=== PATIENT | female | born 1990 | race Caucasian/White ===

== ENCOUNTER 2024-09-14 12:37 | Emergency (ER) | payer MEDICAID, OTHER ==
[~2024-09-14] VITALS: Ht 172.7 cm; Wt 101.7 kg
[2024-09-14 13:16] LABS: Urine Bacteria None Seen /hpf (None Seen)
[2024-09-14 13:26] LABS: Urine Blood 2+ /uL (Negative); Urine Clarity Turbid (Clear); Urine Color Yellow (Yellow); Urine Mucus FEW (None Seen); Urine Protein, UAD TRACE (Negative); Urine Specific Gravity 1.023 (1.001-1.035); Urine Urobilinogen Normal (Negative); Urine WBC 6 /hpf (0 - 5)
--- NOTE | 2024-09-14 13:34 | ED.PDOC ---
History of Present Illness HPI Comments This is a 34-year-old female who comes in with chief complaint of vaginal bleeding. The patient states that she is approximately 15 weeks and started with some bleeding this morning. The patient was also complaining of some low back pain as well as right-sided pelvic pain. The patient denies other complaints at this time. There has been no vomiting or diarrhea. Chief Complaint: Vaginal Bleed Time Seen by MD: 12:45 Primary Care Provider: NONE Reviewed Notes: Nurses Notes, Medications, Allergies (No allergies to medications) Allergies: Coded Allergies: NO KNOWN ALLERGIES (Unverified , 09/14/24) Home Meds Active Scripts Nitrofurantoin Monohydrate Mac (Macrobid) 100 Mg Cap, 100 MG PO BID for 5 Days, #10 CAP Prov:DARSHAN MOLINA MD 09/14/24 Information Source: Patient Mode of Arrival: Ambulatory Severity: Mild Timing: Hours Duration: Since onset Prehospital treatment: None Associated signs and symptoms Vaginal bleeding as well as lower abdominal pain Past Medical History PAST MEDICAL HISTORY: Anxiety Surgical History: Denies all surgeries 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 Family History Family History: Family hx of DM Social History Smoker: Non-Smoker Alcohol: Denies ETOH Use Drugs: Denies Drug Use Lives In: Home Constitutional: denies: chills, diaphoresis, fatigue, fever, malaise, sweats, weakness, others EENTM: denies: blurred vision, double vision, ear bleeding, ear discharge, ear drainage, ear pain, ear ringing, eye pain, eye redness, hearing loss, mouth pain, mouth swelling, nasal discharge, nose bleeding, nose congestion, nose pain, photophobia, tearing, throat pain, throat swelling, voice changes, others Respiratory: denies: cough, hemoptysis, orthopnea, SOB at rest, shortness of breath, SOB with excertion, stridor, wheezing, others Cardiovascular: denies: chest pain, dizzy spells, diaphoresis, Dyspnea on exertion, edema, irregular heart beat, left arm pain, lightheadedness, palpitations, PND, syncope, others Gastrointestinal: denies: abdomen distended, abdominal pain, blood streaked bowels, constipated, diarrhea, dysphagia, difficulty swallowing, hematemesis, melena, nausea, poor appetite, poor fluid intake, rectal bleeding, rectal pain, vomiting, others Genitourinary: reports: abnormal vagina bleeding, ; denies: burning, dyspareunia, dysuria, flank pain, frequency, hematuria, incontinence, pain, vagina discharge, urgency, others Neurological: denies: dizziness, fainting, headache, left sided numbness, left sided weakness, numbness, paresthesia, pre-existing deficit, right sided nu mbness, right sided weakness, seizure, speech problems, tingling, tremors, weakness, others Musculoskeletal: denies: back pain, gout, joint pain, joint swelling, muscle pain, muscle stiffness, neck pain, others Integumetry: denies: bruises, change in color, change in hair/nails, dryness, laceration, lesions, lumps, rash, wounds, others Allergic/Immunocompromised: denies: Difficulty Healing, Frequent Infections, Hives, Itching, others Hematologic/Lymphatic: denies: anemia, blood clots, easy bleeding, easy bruising, swollen glands, others Endocrine: denies: excessive hunger, excessive sweating, excessive thirst, excessive urination, flushing, intolerance to cold, intolerance to heat, unexplained weight gain, unexplained weight loss, others Psychiatric: denies: anxiety, bipolar disorder, depression, hopeless, panic disorder, schizophrenia, sleepless, suicidal, others Physical Exam General Appearance: No Apparent Distress HEENT: Normal ENT Inspection, Pharynx Normal, TMs Normal Neck: Full Range of Motion, Non-Tender, Normal, Normal Inspection Respiratory: Chest Non-Tender, Lungs Clear, No Accessory Muscle Use, No Respiratory Distress, Normal Breath Sounds Cardiovascular: No Edema, No JVD, No Murmur, No Gallop, Normal Peripheral Pulses, Regular Rate/Rhythm Breast Exam: Deferred Gastrointestinal: No Organomegaly, Non Tender, No Pulsatile Mass, Normal Bowel Sounds, Soft Genitalia: Deferred Pelvic: Deferred Rectal: Deferred Extremities: No calf tenderness, Normal capillary refill, Normal inspection, Normal range of motion, Non-tender, No pedal edema Musculoskeletal : Apperance: Normal Neurologic: Alert, distribution system operator II-XII nml as Tested, No Motor Deficits, Normal Affect, Normal Mood, No Sensory Deficits Cerebellar Function: Normal Reflexes: Normal Skin: Dry, Normal Color, Warm Lymphatic: No Adenopathy Was a procedure done? Was a procedure done?: No Differential Dx Considerations may include: Threatened , ectopic , pain in X-Ray, Labs, Meds, VS Vital Signs Date Time Temp Pulse Resp B/P (MAP) Pulse Ox O2 Delivery O2 Flow Rate FiO2 09/14/24 12:50 98.1 89 20 118/76 (90) 100 Lab Test 09/14/24 13:55 09/14/24 13:15 Range/Units Beta HCG, Quantitative 42053.1 H 1.5-4.2 mIU/mL Urine Color Yellow Yellow Urine Clarity Turbid H Clear Urine pH 6.0 5.0-9.0 Urine Specific [place] 1.023 1.001-1.035 Urine Protein Trace H Negative Urine Ketones Negative Negative Urine Blood 2+ H Negative /uL Urine Nitrite Negative Negative Urine Bilirubin Negative Negative Urine Urobilinogen Normal Negative mg/dL Urine Leukocyte Esterase 2+ Negative /uL Urine RBC 2 0 - 4 /hpf Urine WBC 6 0 - 5 /hpf Urine Squamous Epithelial Cells Mod <5 /hpf Urine Bacteria None seen None Seen /hpf Urine Mucus Few None Seen Urine Glucose Normal Normal mg/dL The urine test [place] [address] The ultrasound of the pelvis shows: IMPRESSION: IUP single live fetus at 15 weeks 3 days AUA corresponding to an DESIREE of 03/05/2025 The patient was being started on Macrobid for the UTI The patient was to follow up with her OBGYN. The patient will return to the emergency department's condition worsens. Images Reviewed?: Images reviewed and evaluated by me Time of 1ST Reevaluation: 13:34 Reevaluation 1ST: Unchanged Patient Education/Counseling: Diagnosis, Treatment, Prognosis, Need For Follow Up Family Education/Counseling: Diagnosis, Treatment, Prognosis, Need For Follow Up Departure 1 Departure Time of Disposition: 15:14 Impression: Primary Impression: UTI in Qualified Codes: O23.40 - Unspecified infection of urinary tract in , unspecified trimester Additional Impression: Threatened Disposition: 01 HOME / SELF CARE / HOMELESS Condition: Fair e-Prescriptions Nitrofurantoin Monohydrate Mac (Macrobid) 100 Mg Cap 100 MG PO BID for 5 Days, #10 CAP Prov: DARSHAN MOLINA MD 09/14/24 Discharged With: Self Critical Care Note Critical Care Time?: No Stability Stability form required: No Heart Score Heart Score: Heart Score Response (Comments) Value History N/A 0 EKG N/A 0 Age N/A 0 Risk Factors N/A 0 Troponin N/A 0 Total 0 DARSHAN MOLINA MD Sep 14, 2024 13:34
--- NOTE | 2024-09-14 14:16 | DVH ---
LIMITED OB ULTRASOUND > 14 WKS: HISTORY: vag bleeding TECHNIQUE: Multiple real-time grayscale images of the gravid uterus with duplex Doppler color flow an d M-mode spectral analysis. TRANSDUCER: Vaginal bleeding FINDINGS: IUP single live fetus at 15 weeks 3 days based on composite averages of the BPD, head circumference, abdominal circumference and femur length Estimated weight 118 grams heart rate 141 beats per minute MVP 3.2 cm Cervix appears closed and measures 3.2 cm. Breech Presentation Anterior Placenta without previa or abruption. IMPRESSION: IUP single live fetus at 15 weeks 3 days AUA corresponding to an DESIREE of 03/05/2025
[2024-09-14] MEDS ORDERED: NITR-87 PO (15:13)
[2024-09-14 15:26] VITALS: BP 115/78; PULSE 78; RESP 15; TEMP 98.1; O2SAT 98
== END 2024-09-14 15:30 | disposition home or self-care (01) ==
LOC: ER 12:37
DX: O23.42 Unspecified infection of urinary tract in pregnancy, second trimester (principal); O20.0 Threatened abortion; O26.892 Other specified pregnancy related conditions, second trimester; R10.2 Pelvic and perineal pain; F41.9 Anxiety disorder, unspecified; Z3A.15 15 weeks gestation of pregnancy; Z87.440 Personal history of urinary (tract) infections
CPT/HCPCS: 36415; 76805; 81001; 84702

== ENCOUNTER 2024-12-27 11:10 | Inpatient (IN) | payer MEDICAID ==
[~2024-12-27] VITALS: Ht 172.7 cm; Wt 108.1 kg
[~2024-12-27 11:10] MED LIST: NITR-87 PO
--- NOTE | 2024-12-27 11:27 | ED.PDOC ---
Eye-HPI HPI Comments 34-year-old female presents with a chief complaint of abscess to mouth. Patient reports that she is currently 7 months , and is currently on Amoxicillin for the abscess. Patient reports that she has taken 2 days worth of antibiotics so far. Patient has swelling to the bottom left portion of her mouth. Patient is able to breathe on her own and speak in full, complete sentences. Time Seen by MD: 11:20 Primary Care Provider: NONE Reviewed Notes: Medications, Allergies Allergies: Coded Allergies: NO KNOWN ALLERGIES (Unverified , 09/14/24) Home Meds Active Scripts Nitrofurantoin Monohydrate Mac (Macrobid) 100 Mg Cap, 100 MG PO BID for 5 Days, #10 CAP Prov:DARSHAN MOLINA MD 09/14/24 Information Source: Patient Mode of Arrival: Ambulatory Timing: Days Duration: Since onset Prehospital treatment: Treatment (Amoxicillin x 2 days) Quality: Pain Mouth Location: Left, Lower, Gums Onset: Spontaneous Past Medical History PAST MEDICAL HISTORY: Anxiety, Depression Past Medical History (Other): Hepatitis B Surgical History: Denies all surgeries 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 Family History Family History: Family hx of DM Social History Smoker: Non-Smoker Alcohol: Denies ETOH Use Drugs: Denies Drug Use Lives In: Home Constitutional: denies: chills, diaphoresis, fatigue, fever, malaise, sweats, weakness, others EENTM: reports: mouth pain, mouth swelling; denies: blurred vision, double vision, ear bleeding, ear discharge, ear drainage, ear pain, ear ringing, eye pain, eye redness, hearing loss, nasal discharge, nose bleeding, nose congestion, nose pain, photophobia, tearing, throat pain, throat swelling, voice changes, others Respiratory: denies: cough, hemoptysis, orthopnea, SOB at rest, shortness of breath, SOB with excertion, stridor, wheezing, others Cardiovascular: denies: chest pain, dizzy spells, diaphoresis, Dyspnea on exertion, edema, irregular heart beat, left arm pain, lightheadedness, palpitations, PND, syncope, others Gastrointestinal: denies: abdomen distended, abdominal pain, blood streaked bowels, constipated, diarrhea, dysphagia, difficulty swallowing, hematemesis, melena, nausea, poor appetite, poor fluid intake, rectal bleeding, rectal pain, vomiting, others Genitourinary: denies: abnormal vagina bleeding, burning, dyspareunia, dysuria, flank pain, frequency, hematuria, incontinence, pain, , vagina discharge, urgency, others Neurological: denies: dizziness, fainting, headache, left sided numbness, left sided weakness, numbness, paresthesia, pre-existing deficit, right sided numbn ess, right sided weakness, seizure, speech problems, tingling, tremors, weakness, others Musculoskeletal: denies: back pain, gout, joint pain, joint swelling, muscle pain, muscle stiffness, neck pain, others Integumetry: denies: bruises, change in color, change in hair/nails, dryness, laceration, lesions, lumps, rash, wounds, others Allergic/Immunocompromised: denies: Difficulty Healing, Frequent Infections, Hives, Itching, others Hematologic/Lymphatic: denies: anemia, blood clots, easy bleeding, easy bruising, swollen glands, others Endocrine: denies: excessive hunger, excessive sweating, excessive thirst, excessive urination, flushing, intolerance to cold, intolerance to heat, unexplained weight gain, unexplained weight loss, others Psychiatric: denies: anxiety, bipolar disorder, depression, hopeless, panic disorder, schizophrenia, sleepless, suicidal, others All Other Systems: Reviewed and Negative Physical Exam General Appearance: No Apparent Distress, Normal HEENT: Pharynx Normal, TMs Normal, Other (ABSCESS TO BOTTOM LEFT MOUTH) Neck: Full Range of Motion, Non-Tender, Normal, Normal Inspection Respiratory: Chest Non-Tender, Lungs Clear, No Accessory Muscle Use, No Respiratory Distress, Normal Breath Sounds Cardiovascular: No Edema, No JVD, No Murmur, No Gallop, Normal Peripheral Pulses, Regular Rate/Rhythm Breast Exam: Deferred Gastrointestinal: No Organomegaly, Non Tender, No Pulsatile Mass, Normal Bowel Sounds, Soft Genitalia: Deferred Pelvic: Deferred Rectal: Deferred Extremities: No calf tenderness, Normal capillary refill, Normal inspection, Normal range of motion, Non-tender, No pedal edema Musculoskeletal : Apperance: Normal Neurologic: Alert, bottom precipitator operator II-XII nml as Tested, No Motor Deficits, Normal Affect, Normal Mood, No Sensory Deficits Cerebellar Function: Normal Reflexes: Normal Skin: Dry, Rash (left lower jaw mildly swollen and mildly erythematous and tender. no trismus. no airway swelling ), Warm Lymphatic: No Adenopathy Was a procedure done? Was a procedure done?: Yes Sedation Sedation?: No Informed consent obtained: Yes Incision and Drainage Incision and Drainage: Abscess Anesthetic: Lidocaine Incision and Wound: Pus Informed consent obtained: Yes Risks/benefits/alt described: Yes Notes about 3cc of pus drained. area flattened EENT DIFF Eye: Other Ear: Other Nose: Other Mouth: Herpangina, Herpes Simplex, Other (dental caries, dental abscess, facial cellulitis, lugwig's angina) Sore Throat: Other X-Ray, Labs, Meds, VS Vital Signs Date Time Temp Pulse Resp B/P (MAP) Pulse Ox O2 Delivery O2 Flow Rate FiO2 12/27/24 12:02 18 Room Air* 0 21 12/27/24 12:00 107 18 95 Room Air 12/27/24 12:00 98.3 107 18 132/93 (106) 95 98.3 12/27/24 11:20 98.1 105 16 124/85 (98) 95 98.1 Lab Test 12/27/24 11:30 Range/Units White Blood Count 11.7 H 4.4-10.8 10^3/uL Red Blood Count 4.24 4.0-5.20 10^6/uL Hemoglobin 12.9 12.2-16.2 g/dL Hematocrit 38.4 36.0-46.0 % Mean Corpuscular Volume 90.7 80.0-100.0 fL Mean Corpuscular Hemoglobin 30.4 28.0-32.0 pg Mean Corpuscular Hemoglobin Concent 33.5 32.0-36.0 g/dL Red Cell Distribution Width 13.5 11.8-14.3 % Platelet Count 219 140-450 10^3/uL Mean Platelet Volume 9.4 6.9-10.8 fL Neutrophils (%) (Auto) 80.5 H 37.0-80.0 % Lymphocytes (%) (Auto) 14.0 10.0-50.0 % Monocytes (%) (Auto) 4.2 0.0-12.0 % Eosinophils (%) (Auto) 0.9 0.0-7.0 % Basophils (%) (Auto) 0.4 0.0-2.0 % Neutrophils # (Auto) 9.4 H 1.6-8.6 10 ^3/uL Lymphocytes # (Auto) 1.6 0.4-5.4 10 ^3/uL Monocytes # (Auto) 0.5 0-1.3 10 ^3/uL Eosinophils # (Auto) 0.1 0-0.8 10 ^3/uL Basophils # (Auto) 0.1 0-0.2 10 ^3/uL Nucleated Red Blood Cells 0.1 % Sodium Level 137 136-145 mmol/L Potassium Level 3.6 3.5-5.1 mmol/L Chloride Level 106 98-107 mmol/L Carbon Dioxide Level 22 20-31 mmol/L Anion Gap 9 5-15 Blood Urea Nitrogen Pending Creatinine 0.59 0.550-1.02 mg/dL Glomerular Filtration Rate Calc 123 >90 mL/min BUN/Creatinine Ratio Pending Serum Glucose 130 H 74-106 mg/dL Calcium Level 9.1 8.7-10.4 mg/dL Current Medications Medications (Trade) Dose Ordered Sig/Adrianna Route Start Time Stop Time Status Last Admin Ceftriaxone Sodium 50 ml @ 100 mls/hr ONCE ONCE IV 12/27/24 11:30 12/27/24 11:59 DC 12/27/24 11:58 Time of 1ST Reevaluation: 11:50 Reevaluation 1ST: Unchanged Time of 2ND Reevaluation: 11:52 Reevaluation 2ND: Improved Patient Education/Counseling: Diagnosis, Treatment, Prognosis, Need For Follow Up Family Education/Counseling: No Family Present Additional Information Previous visit documents reviewed: September 2024 for UTI The following tests were ordered, and results were reviewed by me: CBC, BMP, ROCEPHIN IV I discussed treatment and results with medical personnel and: Patient pt is , has failed outpatient antibiotic for a dental abscess. although the gingival abscess is drained here. she does have swelling, redness of the mandible, suggesting cellulitis. ct is not done, since she is , but she will be admitted for iv antibiotic and monitoring for improvement Departure 1 Departure Time of Disposition: 12:15 Impression: Primary Impression: Dental abscess Additional Impressions: Facial cellulitis Qualified Codes: Z3A.36 - 36 weeks gestation of Disposition: ADMITTED INPATIENT Admit to: Med Surg Condition: Stable Discharged With: Self Critical Care Note Critical Care Time?: No Stability Stability form required: No Heart Score Heart Score: Heart Score Response (Comments) Value History N/A 0 EKG N/A 0 Age N/A 0 Risk Factors N/A 0 Troponin N/A 0 Total 0 I personally scribed for WM JUNIOR MD [facility] on 12/27/24 at 11:26. Electronically submitted by Demond Cooley ([email or web address]). I personally scribed for WM JUNIOR MD ([email or web address]) on 12/27/24 at 11:27. Electronically submitted by Demond Cooley ([email or web address]). WM JUNIOR MD Dec 27, 2024 11:26
[2024-12-27 11:44] LABS: Basophils # (auto) 0.1 10 ^3/uL (0-0.2); Basophils % (auto) 0.4 % (0.0-2.0); Eosinophils # (auto) 0.1 10 ^3/uL (0-0.8); Eosinophils % (auto) 0.9 % (0.0-7.0); Hematocrit 38.4 % (36.0-46.0); Hemoglobin 12.9 g/dL (12.2-16.2); Lymphocytes # (auto) 1.6 10 ^3/uL (0.4-5.4); Mean Corpuscular Hemoglobin 30.4 pg (28.0-32.0); Mean Corpuscular Hgb Conc. 33.5 g/dL (32.0-36.0); Mean Corpuscular Volume 90.7 fL (80.0-100.0); Monocytes # (auto) 0.5 10 ^3/uL (0-1.3); Monocytes % (auto) 4.2 % (0.0-12.0); Neutrophils # (auto) 9.4 10 ^3/uL (1.6-8.6); Neutrophils % (auto) 80.5 % (37.0-80.0); Nucleated Red Blood Cells % 0.1 %; Platelet Count (auto) 219 10^3/uL (140-450); Red Blood Cells 4.24 10^6/uL (4.0-5.20); Red Cell Distribution Width 13.5 % (11.8-14.3); White Blood Cell 11.7 10^3/uL (4.4-10.8)
[2024-12-27] MEDS: LIDOCAINE 1% HCL (LOCAL ANESTH.) INJ 20ML MDV IJ ONE (11:44)
[2024-12-27 11:58] LABS: Chloride 106 mmol/L (98-107); Potassium 3.6 mmol/L (3.5-5.1); Sodium 137 mmol/L (136-145)
[2024-12-27] MEDS: cefTRIAXone 1GM/50ML D5W 50 ML IV ONE (11:58)
[2024-12-27 11:59] LABS: Anion Gap 9 (5-15); Calcium 9.1 mg/dL (8.7-10.4); Carbon Dioxide 22 mmol/L (20-31)
[2024-12-27 12:02] VITALS: RESP 18
[2024-12-27 12:04] LABS: Glucose 130 mg/dL (74-106)
[2024-12-27 12:24] LABS: BUN/Creatinine Ratio 8.5 (10.0-20.0); Blood Urea Nitrogen < 5 mg/dL (9-23)
[2024-12-27] MEDS: ACETAMINOPHEN 325 MG TAB PO ONE (13:31)
[2024-12-27 15:29] VITALS: PULSE 84; RESP 20; O2SAT 96
--- NOTE | 2024-12-27 15:50 | DVHHP2 ---
History of Present Illness Reason for Visit: Dental pain History of Present Illness This 34-year-old female is currently seven months , presents in the ED with a chief complaint of dental abscess. Symptoms is associated with patient's swelling, erythema, and warmth to touch. The patient reports that she was seen by her dentist yesterday and was given PO amoxicillin. The patient states that she has been taking oral antibiotics with no relief. Denies fever, chills, shortness of breath, chest pain, or other acute symptoms. Past Medical History Denies Past Surgical History Denies Family History Reviewed, non-contributory to the management of this case. Past Social History The patient lives at home, denies smoking, alcohol or illicit drugs abuse. Review of Systems Constitutional: Yes: Malaise, Other (dental pain); No: Fever, Chills, Sweats, Weakness Eyes: No: Pain, Vision change, Conjunctivae inflammation, Eyelid inflammation, Other, Redness ENT: No: Ear pain, Ear discharge, Nose pain, Nose discharge, Nose congestion, Mouth pain, Mouth swelling, Throat pain, Throat swelling, Other Respiratory: No: Cough, Dry, Shortness of breath, SOB with excertion, Wheezing, Hemoptysis, Pleuritic Pain, Sputum, Wheezing, Other Gastrointestinal: No: Nausea, Vomiting, Abdominal Pain, Diarrhea, Constipation, Melena, Hematochezia, Other Musculoskeletal: No: other, neck pain, shoulder pain, arm pain, back pain, hand pain, leg pain, foot pain Skin: Other (Facial swelling, gums swelling); No: Rash, Lesions, Jaundice, Bruising Neurological: No: Weakness, Numbness, Incoordination, Change in speech, Confusion, Seizures, Other Allergies: Coded Allergies: NO KNOWN ALLERGIES (Unverified , 09/14/24) Exam Vital Signs Vital Signs Date Time Temp Pulse Resp B/P (MAP) Pulse Ox O2 Delivery O2 Flow Rate FiO2 12/27/24 15:29 84 20 96 Room Air* 0 21 12/27/24 15:25 96.7 107/71 (83) 96.7 General Appearance: Alert, Oriented X3, Cooperative, mild distress HEENT: Atraumatic, PERRLA, EOMI, Mucous membr. moist/pink, Other (Gums swelling, facial swelling, erythema) Respiratory: Clear to auscultation, Normal air movement Cardiovascular: Regular rate, Normal S1, Normal S2 Abdominal: Normal bowel sounds, Soft, No tenderness Extremities: No clubbing, No cyanosis, No edema, Normal pulses Neuro: Normal gait, Normal tone Psych/Mental Status: Mental status NL Labs/Xrays Labs Test 12/27/24 11:30 Range/Units White Blood Count 11.7 H 4.4-10.8 10^3/uL Red Blood Count 4.24 4.0-5.20 10^6/uL Hemoglobin 12.9 12.2-16.2 g/dL Hematocrit 38.4 36.0-46.0 % Mean Corpuscular Volume 90.7 80.0-100.0 fL Mean Corpuscular Hemoglobin 30.4 28.0-32.0 pg Mean Corpuscular Hemoglobin Concent 33.5 32.0-36.0 g/dL Red Cell Distribution Width 13.5 11.8-14.3 % Platelet Count 219 140-450 10^3/uL Mean Platelet Volume 9.4 6.9-10.8 fL Neutrophils (%) (Auto) 80.5 H 37.0-80.0 % Lymphocytes (%) (Auto) 14.0 10.0-50.0 % Monocytes (%) (Auto) 4.2 0.0-12.0 % Eosinophils (%) (Auto) 0.9 0.0-7.0 % Basophils (%) (Auto) 0.4 0.0-2.0 % Neutrophils # (Auto) 9.4 H 1.6-8.6 10 ^3/uL Lymphocytes # (Auto) 1.6 0.4-5.4 10 ^3/uL Monocytes # (Auto) 0.5 0-1.3 10 ^3/uL Eosinophils # (Auto) 0.1 0-0.8 10 ^3/uL Basophils # (Auto) 0.1 0-0.2 10 ^3/uL Nucleated Red Blood Cells 0.1 % Sodium Level 137 136-145 mmol/L Potassium Level 3.6 3.5-5.1 mmol/L Chloride Level 106 98-107 mmol/L Carbon Dioxide Level 22 20-31 mmol/L Anion Gap 9 5-15 Blood Urea Nitrogen < 5 L 9-23 mg/dL Creatinine 0.59 0.550-1.02 mg/dL Glomerular Filtration Rate Calc 123 >90 mL/min BUN/Creatinine Ratio 8.5 L 10.0-20.0 Serum Glucose 130 H 74-106 mg/dL Calcium Level 9.1 8.7-10.4 mg/dL Assessment/Plan Assessment/Plan # rule out sepsis # dental abscess # , approx 30 wk. Admit to medical unit Empiric antibiotic with amoxicillin p.o. and Ancef Consult OB Dr Nunez IV fluid Medical plan discussed with patient Plan discussed with: Patient Date of Service: Dec 27, 2024 Billing Provider: PRESLEY MENENDEZ Common Visit Codes: [id number] INP/OBS CARE (HIGH) PRESLEY MENENDEZP Dec 27, 2024 15:50
[2024-12-27] MEDS: SODIUM CHLORIDE 0.9% 1,000 ML IV SCH (16:25)
[2024-12-27] MEDS: AMOXICILLIN TRIHYDRATE 250 MG CAP PO SCH (16:30)
[2024-12-27 17:17] VITALS: BP 100/59; PULSE 77; RESP 18; TEMP 98; O2SAT 96
[2024-12-27] MEDS: ceFAZolin 1GM/50ML 50 ML IV SCH (18:52)
[2024-12-27 20:00] VITALS: PULSE 87; RESP 15
[2024-12-27 21:00] VITALS: BP 112/71; PULSE 87; RESP 15; TEMP 97.9; O2SAT 97
[2024-12-28] VITALS (9 sets, daily range): BP systolic 84–108; BP diastolic 45–66; PULSE 67–87; RESP 15–20; TEMP 97.3–97.8; O2SAT 95–97
[2024-12-28 06:27] LABS: Basophils # (auto) 0 10 ^3/uL (0-0.2); Basophils % (auto) 0.4 % (0.0-2.0); Eosinophils # (auto) 0.1 10 ^3/uL (0-0.8); Eosinophils % (auto) 1.5 % (0.0-7.0); Hematocrit 32.8 % (36.0-46.0); Hemoglobin 11.6 g/dL (12.2-16.2); Lymphocytes # (auto) 2.1 10 ^3/uL (0.4-5.4); Lymphocytes % (auto) 24.5 % (10.0-50.0); Mean Corpuscular Hgb Conc. 35.2 g/dL (32.0-36.0); Mean Corpuscular Volume 90.9 fL (80.0-100.0); Monocytes # (auto) 0.6 10 ^3/uL (0-1.3); Monocytes % (auto) 6.6 % (0.0-12.0); Neutrophils # (auto) 5.6 10 ^3/uL (1.6-8.6); Nucleated Red Blood Cells % 0.1 %; Platelet Count (auto) 177 10^3/uL (140-450); Red Blood Cells 3.61 10^6/uL (4.0-5.20); Red Cell Distribution Width 13.3 % (11.8-14.3); White Blood Cell 8.4 10^3/uL (4.4-10.8)
[2024-12-28 06:40] LABS: Alanine Aminotransferase 22 U/L (7-40); Anion Gap 9 (5-15); Calcium 8.8 mg/dL (8.7-10.4); Carbon Dioxide 22 mmol/L (20-31); Potassium 3.6 mmol/L (3.5-5.1); Sodium 139 mmol/L (136-145)
[2024-12-28 06:41] LABS: Glucose 85 mg/dL (74-106)
[2024-12-28 06:42] LABS: Alkaline Phosphatase 179 U/L (46-116); BUN/Creatinine Ratio 9.1 (10.0-20.0); Blood Urea Nitrogen < 5 mg/dL (9-23); Chloride 108 mmol/L (98-107); Total Protein 5.8 g/dL (5.7-8.2)
[2024-12-28 06:43] LABS: Albumin 3.4 g/dL (3.2-4.8); Aspartate Aminotransferase 26 U/L (13-40)
[2024-12-28 06:44] LABS: Bilirubin, Total 0.4 mg/dL (0.2-1.0)
[2024-12-28 08:39] LABS: Albumin 3.3 g/dL (3.2-4.8); Bilirubin, Direct 0.1 mg/dL (<0.3); Bilirubin, Total 0.4 mg/dL (0.2-1.0); Magnesium 1.8 mg/dL (1.6-2.6); Total Protein 5.8 g/dL (5.7-8.2)
[2024-12-28 08:49] LABS: Thyroid Stimulating Hormone 1.82 uIU/mL (0.55-4.78)
--- NOTE | 2024-12-28 09:31 | DVHINCON2 ---
Date of service: Dec 28, 2024 Reason for Consultation 30 wk , acute illness (Tooth abscess) History of Present Illness HPI 34y G2Po IUP 30.4 wk by Stated EDC of 03/04/25 care with Tra Johnson. has been uncomplicated Denies any pain, bleeding, contractions. Reports normal movements Patient admitted with acute left side oral pain diagnosed with tooth abscess. Denies fever/chills or purulent discharge. She was prescribed oral antibiotics by dentist but symptoms have not subsided. Home Meds Active Scripts Nitrofurantoin Monohydrate Mac (Macrobid) 100 Mg Cap, 100 MG PO BID for 5 Days, #10 CAP Prov:DARSHAN MOLINA MD 09/14/24 Past Medical History Cardiac: No pertinent Hx Pulmonary: No pertinent Hx Central Nervous System: No pertinent Hx GI: No pertinent Hx Hemotology/Oncology: No pertinent Hx Hepatobiliary: No pertinent Hx Psychiatric: No pertinent Hx Musculoskeletal: No pertinent Hx Rheumotologic: No pertinent Hx Infectious Disease: No peritnent Hx ENT: No pertinent Hx Renal/: No pertinent Hx Endocrine: No pertinent Hx Dermatology: No pertinent Hx Past Surgical History: No pertinent Hx Family History: No pertinent Hx Patient Family History: Diabetes mellitus MATERNAL GRANDMOTHER FH: dementia MATERNAL GRANDMOTHER FH: schizophrenia G8 MOTHER Smoker: No Hx (Negative) Alocohol: None Drugs: None Lives with: Alone Domestic Violence: Neg Review of Systems Constitutional: No symptom reported Ears, Nose, & Throat: Mouth pain Eyes: No symptom reported Pulmonary/Respiratory: No symptom reported Cardiovascular: No symptom reported Gastrointestinal: No symptom reported Genitourinary: No symptom reported Musculoskeletal: No symptom reported Skin: No symptom reported Psychiatric: No symptom reported Endocrine: No symptom reported Hemotologic/Lymphatic: No symptom reported H&P Exam Vital Signs Vital Signs Date Time Temp Pulse Resp B/P (MAP) Pulse Ox O2 Delivery O2 Flow Rate FiO2 12/28/24 05:00 97.8 87 15 91/64 (73) 96 97.8 12/27/24 20:00 Room Air* 0 21 General Appeara: Well developed, Well nourished, Normal Appearance Head Exam: Normal inspection Neck Exam: Normal inspection Eye Exam: bilateral eye PERRL Mouth: Normal Inspection (gingival swelling in lower left ) Cardiovascular/Chest: Normal inspection Back Exam: Normal inspection Pelvic Exam: Not done 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 Exam: Normal hearing, Normal speech, PERRL Skin Exam: Normal inspection Labs/Xrays Labs Test 12/28/24 05:36 12/28/24 05:26 Range/Units Thyroid Stimulating Hormone (TSH) 1.82 0.55-4.78 uIU/mL Beta HCG, Quantitative 73595.7 H 1.5-4.2 mIU/mL White Blood Count 8.4 # 4.4-10.8 10^3/uL Red Blood Count 3.61 L 4.0-5.20 10^6/uL Hemoglobin 11.6 L 12.2-16.2 g/dL Hematocrit 32.8 #L 36.0-46.0 % Mean Corpuscular Volume 90.9 80.0-100.0 fL Mean Corpuscular Hemoglobin 32.0 28.0-32.0 pg Mean Corpuscular Hemoglobin Concent 35.2 32.0-36.0 g/dL Red Cell Distribution Width 13.3 11.8-14.3 % Platelet Count 177 140-450 10^3/uL Mean Platelet Volume 9.5 6.9-10.8 fL Neutrophils (%) (Auto) 67.0 37.0-80.0 % Lymphocytes (%) (Auto) 24.5 10.0-50.0 % Monocytes (%) (Auto) 6.6 0.0-12.0 % Eosinophils (%) (Auto) 1.5 0.0-7.0 % Basophils (%) (Auto) 0.4 0.0-2.0 % Neutrophils # (Auto) 5.6 1.6-8.6 10 ^3/uL Lymphocytes # (Auto) 2.1 0.4-5.4 10 ^3/uL Monocytes # (Auto) 0.6 0-1.3 10 ^3/uL Eosinophils # (Auto) 0.1 0-0.8 10 ^3/uL Basophils # (Auto) 0 0-0.2 10 ^3/uL Nucleated Red Blood Cells 0.1 % Sodium Level 139 136-145 mmol/L Potassium Level 3.6 3.5-5.1 mmol/L Chloride Level 108 H 98-107 mmol/L Carbon Dioxide Level 22 20-31 mmol/L Anion Gap 9 5-15 Blood Urea Nitrogen < 5 L 9-23 mg/dL Creatinine 0.55 0.550-1.02 mg/dL Glomerular Filtration Rate Calc 125 >90 mL/min BUN/Creatinine Ratio 9.1 L 10.0-20.0 Serum Glucose 85 74-106 mg/dL Hemoglobin A1c 4.8 <5.7 % A1C Calcium Level 8.8 8.7-10.4 mg/dL Magnesium Level 1.8 1.6-2.6 mg/dL Total Bilirubin 0.4 0.2-1.0 mg/dL Direct Bilirubin 0.1 <0.3 mg/dL Aspartate Amino Transferase (AST) 26 13-40 U/L Alanine Aminotransferase (ALT) 23 7-40 U/L Alkaline Phosphatase 188 H 46-116 U/L Total Protein 5.8 5.7-8.2 g/dL Albumin 3.3 3.2-4.8 g/dL Assessment/Plan Admitting Diagnosis: 1. IUP 30+ week, confirmed by OB Ulttrasound on admission _ NO acute OB complications at this time _ Will get NST today. OB will sign off if its normal. Patilent to F/U w/ her own OB MD upon discharge Tooth abscess, oral infection _ agree w/ plan for Antibiotics and Tylenol /analgesics for pain Plan as above Plan discussed with: Patient Date of Service: Dec 28, 2024 Billing Provider: EVON ADAIR DO Common Visit Codes: CONSULT ONLY Consultation Codes: [id number] CONSULT <45MIN EVON ADAIR DO Dec 28, 2024 09:31
--- NOTE | 2024-12-28 10:18 | DVH ---
LIMITED OB ULTRASOUND > 14 WKS: HISTORY: Acute illness maternal, complete OB ultrasound TECHNIQUE: Multiple real-time grayscale images of the gravid uterus with duplex Doppler color flow an d M-mode spectral analysis. TRANSDUCER: Transabdominal COMPARISON: US OB ULTRASOUND COMP GTR 14 WKS on DOS: 09/14/24 FINDINGS: IUP single live fetus at 30 weeks and 4 days based on composite averages of the BPD, head circumferen ce, abdominal circumference and femur length Estimated weight 1596 grams heart rate 136 beats per minute DIANA is subjectively within normal limits, deepest pocket measures 4.7 cm Cervix is closed Cephalic Presentation Anterior Placenta without previa or abruption. IMPRESSION: IUP single live fetus at 30 weeks and 4 days AUA corresponding to an DESIREE of 03/04/2025
[2024-12-28] MEDS: SODIUM CHLORIDE 0.9% 500 ML IV ONE (12:58)
[2024-12-28] MEDS: ERGOCALCIFEROL 50,000 UNIT(1.25MG) CAP PO SCH (12:58)
[2024-12-28] MEDS: ESCITALOPRAM 20 MG PO SCH (16:00)
--- NOTE | 2024-12-28 16:02 | DVHPNRES ---
Progress Note Date Seen: Dec 28, 2024 Resident Creating Document: PHAN MUKHERJEE RESIDENT Medical Necessity Reason Pt with a Central, PICC or Fol: No Subjective Review of Systems Ms. Alvarez is a 34-year-old female with no relevant past medical history who presented to the ER with a chief complaint of worsening pain in the left jaw, along with inability to swallow or open her mouth. She reports that the symptoms started last week and she uses in the urgent care where she was prescribed amoxicillin clavulanate p.o. for dental abscess. She reported her symptoms was sent over the past few days. She could not open her mouth or swallow any solid food. Denies fever or chills. On arrival patient's vital were stable. WBC was 11.7. In the ER, patient's dental abscess was drained. She was started on IV cefazolin along with p.o. amoxicillin. Pelvic ultrasound was completed which was unremarkable. OBGYN was consulted which recommended NST. Home medication: Escitalopram 20 mg daily, vitamin Social history: Denies smoking/drug use/drinking Patient seen and examined at the bedside. OBGYN recommended NST. Patient feels better. WBC downtrending. Objective vital signs Vital Sign Date Time Temp Pulse Resp B/P (MAP) Pulse Ox O2 Delivery O2 Flow Rate FiO2 12/28/24 13:00 97.3 78 17 84/45 (58) 97 97.3 12/28/24 08:00 Room Air* 0 21 Total Intake and Output 12/27/24 12/27/24 12/28/24 14:59 22:59 06:59 Intake Total 50 ml 50 ml 610 ml Balance 50 ml 50 ml 610 ml medications Current Medications Medications Dose Ordered Sig/Adrianna Route Start Time Stop Time Status Last Admin Dose Admin Amoxicillin 500 mg Q8HR PO 12/27/24 15:45 12/28/24 15:16 500 MG Cefazolin Sodium 50 ml @ 100 mls/hr Q6HR IV 12/27/24 15:45 12/28/24 12:57 100 MLS/HR Ergocalciferol 50,000 unit Q7D PO 12/28/24 12:45 12/28/24 12:58 50,000 UNIT Acetaminophen 325 mg Q6HP PRN PO 12/28/24 12:45 Examination Patient lying in bed, in no acute distress General: Well-built, afebrile, palor, mucosae are moist. Left lower 2nd molar has resolving abscess. Status post I&D. No cervical lymph nodes Cardiovascular: Regular S1 and S2. No murmurs, gallops or rubs. No JVD elevation. No pedal edema Respiratory: Normal B/L air entry on room air. Clear lung sounds on auscultation Abdomen: Soft, nontender, distended, normoactive bowel sounds, no rebound tenderness, no organomegaly, no masses Genitourinary: Deferred MSK/skin: Mobilizes 4 limbs. Skin is dry and warm Neurological: No motor, no sensitive deficits, normal speech. Pupils are isocoric and reactive. Psych/Mental Status: A/Ox3 laboratory and microbiology Laboratory Tests 12/28/24 05:26 Test 12/28/24 05:26 Range/Units Serum Glucose 85 74-106 mg/dL Labs and/or images reviewed: Labs reviewed by me, Image(s) reviewed by me Problem List/Assessment/Plan Problem List/Assessment/Plan Left-sided dental abscess status post incision and drainage Continue IV cefazolin and p.o. amoxicillin NS 500 cc bolus administered Tylenol For pain control Intrauterine 30+ week Hypotension secondary to IUP Pelvic ultrasound completed, showed IUP single live fetus at 30 weeks and 4 days AUA corresponding to an DESIREE of 03/04/2025 OBGYN recommended NST today. Patient to follow up with her own OBGYN MD upon discharge Vitamin-D deficiency Supplemented History of depression Continue home medication escitalopram 20 mg daily Plan discussed with patient and mother at the bedside in which all questions have been answered Goals of care discussed with the patient for more than 28 minutes, full code status Case discussed with Dr. Begum Plan discussed with: Patient My Orders My Orders Orders - PHAN MUKHERJEE Procedure Category Date Status Time Ergocalciferol PHA 12/28/24 In Process (Vitamin D 50,000 12:45 Acetaminophen Tablet PHA 12/28/24 In Process (Tylenol Tablet) 12:45 Refer To Social DON 12/28/24 In Process Services 13:03 * [employer] Work[employer] CONS 12/28/24 Transmitted Consult PHAN MUKHERJEE Dec 28, 2024 16:01
[2024-12-29 01:00] VITALS: BP 111/68; PULSE 70; RESP 18; TEMP 97.8; O2SAT 98
[2024-12-29 05:00] VITALS: BP 101/64; PULSE 58; RESP 18; TEMP 97.9; O2SAT 96
[2024-12-29 06:43] LABS: Chloride 107 mmol/L (98-107); Sodium 139 mmol/L (136-145)
[2024-12-29 06:44] LABS: Anion Gap 9 (5-15); Calcium 8.7 mg/dL (8.7-10.4); Carbon Dioxide 23 mmol/L (20-31)
[2024-12-29 06:49] LABS: Glucose 81 mg/dL (74-106)
[2024-12-29 06:50] LABS: BUN/Creatinine Ratio 9.8 (10.0-20.0); Blood Urea Nitrogen < 5 mg/dL (9-23); Potassium 3.5 mmol/L (3.5-5.1)
[2024-12-29 06:55] LABS: Basophils # (auto) 0 10 ^3/uL (0-0.2); Basophils % (auto) 0.3 % (0.0-2.0); Eosinophils # (auto) 0.2 10 ^3/uL (0-0.8); Eosinophils % (auto) 1.9 % (0.0-7.0); Hematocrit 33.8 % (36.0-46.0); Hemoglobin 11.9 g/dL (12.2-16.2); Lymphocytes # (auto) 2.2 10 ^3/uL (0.4-5.4); Lymphocytes % (auto) 23.9 % (10.0-50.0); Mean Corpuscular Hemoglobin 31.6 pg (28.0-32.0); Mean Corpuscular Hgb Conc. 35.1 g/dL (32.0-36.0); Monocytes # (auto) 0.5 10 ^3/uL (0-1.3); Monocytes % (auto) 5.7 % (0.0-12.0); Neutrophils # (auto) 6.3 10 ^3/uL (1.6-8.6); Neutrophils % (auto) 68.2 % (37.0-80.0); Nucleated Red Blood Cells % 0.1 %; Platelet Count (auto) 190 10^3/uL (140-450); Red Blood Cells 3.75 10^6/uL (4.0-5.20); White Blood Cell 9.2 10^3/uL (4.4-10.8)
[2024-12-29 08:41] VITALS: BP 99/61; PULSE 63; RESP 20; TEMP 97.5; O2SAT 97
[2024-12-29] MEDS ORDERED: AMOX500C2 PO (11:02)
[2024-12-29] MEDS ORDERED: CHOL500021 OR (11:02)
--- NOTE | 2024-12-29 11:03 | DVHDSRES ---
Discharge Summary Date of Admission Resident Creating Document: PHAN MUKHERJEE RESIDENT Dec 27, 2024 at 15:34 Date of Discharge: Dec 29, 2024 Labs/Diagnostic Data: Laboratory Results Test 12/29/24 05:12 12/28/24 05:36 12/28/24 05:26 White Blood Count 9.2 10^3/uL (4.4-10.8) Red Blood Count 3.75 10^6/uL (4.0-5.20) Hemoglobin 11.9 g/dL (12.2-16.2) Hematocrit 33.8 % (36.0-46.0) Mean Corpuscular Volume 90.0 fL (80.0-100.0) Mean Corpuscular Hemoglobin 31.6 pg (28.0-32.0) Mean Corpuscular Hemoglobin Concent 35.1 g/dL (32.0-36.0) Red Cell Distribution Width 13.0 % (11.8-14.3) Platelet Count 190 10^3/uL (140-450) Mean Platelet Volume 9.4 fL (6.9-10.8) Neutrophils (%) (Auto) 68.2 % (37.0-80.0) Lymphocytes (%) (Auto) 23.9 % (10.0-50.0) Monocytes (%) (Auto) 5.7 % (0.0-12.0) Eosinophils (%) (Auto) 1.9 % (0.0-7.0) Basophils (%) (Auto) 0.3 % (0.0-2.0) Neutrophils # (Auto) 6.3 10 ^3/uL (1.6-8.6) Lymphocytes # (Auto) 2.2 10 ^3/uL (0.4-5.4) Monocytes # (Auto) 0.5 10 ^3/uL (0-1.3) Eosinophils # (Auto) 0.2 10 ^3/uL (0-0.8) Basophils # (Auto) 0 10 ^3/uL (0-0.2) Nucleated Red Blood Cells 0.1 % Sodium Level 139 mmol/L (136-145) Potassium Level 3.5 mmol/L (3.5-5.1) Chloride Level 107 mmol/L (98-107) Carbon Dioxide Level 23 mmol/L (20-31) Anion Gap 9 (5-15) Blood Urea Nitrogen < 5 mg/dL (9-23) Creatinine 0.51 mg/dL (0.550-1.02) Glomerular Filtration Rate Calc 127 mL/min (>90) BUN/Creatinine Ratio 9.8 (10.0-20.0) Serum Glucose 81 mg/dL (74-106) Calcium Level 8.7 mg/dL (8.7-10.4) Thyroid Stimulating Hormone (TSH) 1.82 uIU/mL (0.55-4.78) Beta HCG, Quantitative 03101.7 mIU/mL (1.5-4.2) Hemoglobin A1c 4.8 % A1C (<5.7) Magnesium Level 1.8 mg/dL (1.6-2.6) Total Bilirubin 0.4 mg/dL (0.2-1.0) Direct Bilirubin 0.1 mg/dL (<0.3) Aspartate Amino Transferase (AST) 26 U/L (13-40) Alanine Aminotransferase (ALT) 23 U/L (7-40) Alkaline Phosphatase 188 U/L (46-116) Total Protein 5.8 g/dL (5.7-8.2) Albumin 3.3 g/dL (3.2-4.8) Vitamin B12 Level 211 pg/mL (211-911) Vitamin D 25-Hydroxy 28.0 ng/mL (30.0-100) Other Laboratory Tests 12/29/24 05:12 Brief Hx & Hospital Course: Ms. Alvarez is a 34-year-old female with no relevant past medical history who presented to the ER with a chief complaint of worsening pain in the left jaw, along with inability to swallow or open her mouth. She reports that the symptoms started last week and she uses in the urgent care where she was prescribed amoxicillin clavulanate p.o. for dental abscess. She reported her symptoms was sent over the past few days. She could not open her mouth or swallow any solid food. Denies fever or chills. On arrival patient's vital were stable. WBC was 11.7. Home medication: Escitalopram 20 mg daily, vitamin Social history: Denies smoking/drug use/drinking Patient seen and examined at the bedside. OBGYN recommended NST. Patient feels better. WBC downtrending. In the ER, patient's dental abscess was drained. She was started on IV cefazolin q.6 hour along with p.o. amoxicillin 500 q.8 hour. Pelvic ultrasound was completed which showed IUP single live fetus at 30 weeks and 4 days AUA corresponding to an DESIREE of 03/04/2025. OBGYN was consulted which recommended NST. NST completed, Baseline HR 120, NST reactive with CAT 1 tracing noted, no uterine contractions noted or felt by patient. Patient to follow up with her own OBGYN MD upon discharge . Vitamin-D was supplemented. The patient's home medication of citalopram 20 mg was continued during the hospital stay. 12/29, patient is hemodynamically and vitally stable, no active complaint therefore she has been discharged when on p.o. amoxicillin for the next 5 days. She was advised to follow up with OBGYN as outpatient, as PCP within 7 days, discharge clinic within 7 days. Patient agreed to the discharge planning. Discharge diagnosis: Left-sided dental abscess status post incision and drainage Intrauterine 30+ week Hypotension secondary to IUP Vitamin-D deficiency History of depression Consults/Reason for consult OBGYN consult for Operations or Procedures ORDERING PHYSICIAN: EVON ADAIR DO PROCEDURE(s): OBUS - OB ULTRASOUND COMP GTR 14 WKS REASON: Acute illness maternal, complete OB ultrasound ORDER NUMBER(s): [id number], ACCESSION NUMBER(s): [id number] LIMITED OB ULTRASOUND > 14 WKS: HISTORY: Acute illness maternal, complete OB ultrasound TECHNIQUE: Multiple real-time grayscale images of the gravid uterus with duplex Doppler color flow and M-mode spectral analysis. TRANSDUCER: Transabdominal COMPARISON: US OB ULTRASOUND COMP GTR 14 WKS on DOS: 09/14/24 FINDINGS: IUP single live fetus at 30 weeks and 4 days based on composite averages of the BPD, head circumference, abdominal circumference and femur length Estimated weight 1596 grams heart rate 136 beats per minute DIANA is subjectively within normal limits, deepest pocket measures 4.7 cm Cervix is closed Cephalic Presentation Anterior Placenta without previa or abruption. IMPRESSION: IUP single live fetus at 30 weeks and 4 days AUA corresponding to an DESIREE of 03/04/2025 ATED BY: SHAUN LEMON MD DICTATED DATE/TIME: 12/28/24 1014 SIGNED BY: SHAUN LEMON MD SIGNED DATE/TIME: 12/28/24 1014 CC: Condition at Discharge: Stable Final Diagnosis/Problems List Left-sided dental abscess status post incision and drainage Intrauterine 30+ week Hypotension secondary to IUP Vitamin-D deficiency History of depression Discharge Disposition: Home Discharge Instruct/Medications Diet: See Comment Diet comment: Soft Diet Activity: Light activity Follow Up/Referral: Follow up with Primary care physician within 7 days Follow up with OBGYN within 7 days Follow up with discharge clinic appointment within 7 days Medications: Per EMR Discharge Statement: "Patient was advised to return to the ER or call 911 if any headaches, dizziness, shortness of breath, chest pain, abdominal pain, bleeding, fevers, or worsening of medical condition. Patient was counseled about treatment plan, medications, possible side effects, patientverbalized understanding. All questions were answered to the best of my ability. This discharge took greater then 30 minutes in planning, reviewing documentation, counseling the patient, and discussing with other team members." ASSESSMENT ASSESSMENT Assessment Left-sided dental abscess status post incision and drainage Intrauterine 30+ week Hypotension secondary to IUP Vitamin-D deficiency PHAN MUKHERJEE RESIDENT Dec 29, 2024 11:03
[2024-12-29] MEDS: POTASSIUM EFFERVESENT TAB 25 MEQ PO ONE (12:17)
[2024-12-29] MEDS: ACETAMINOPHEN 325 MG TAB PO PRN (12:18)
[2024-12-29 12:31] VITALS: BP 104/66; PULSE 73; RESP 20; TEMP 97.7; O2SAT 96
== END 2024-12-29 15:30 | disposition home or self-care (01) | DRG 566 ==
LOC: ER 11:10 → OVERFLOW 15:34 → CENTRAL 17:14
PROVIDERS: ADMIT Internal Medicine; ATTEND Family Medicine
PROC: 0H91XZZ Drainage of Face Skin, External Approach (ICD-10-PCS; principal; 2024-12-27)
DX: O99.713 Diseases of the skin and subcutaneous tissue complicating pregnancy, third trimester (principal); O98.813 Other maternal infectious and parasitic diseases complicating pregnancy, third trimester; E55.9 Vitamin D deficiency, unspecified; O26.53 Maternal hypotension syndrome, third trimester; K04.7 Periapical abscess without sinus; Z3A.30 30 weeks gestation of pregnancy; F32.A Depression, unspecified; F41.9 Anxiety disorder, unspecified; Z83.3 Family history of diabetes mellitus; Z81.8 Family history of other mental and behavioral disorders
CPT/HCPCS: 36415; 41800; 76805; 80048; 80053; 80076; 82306; 82607; 83036; 83735; 84443; 84702; 85025; 96365; G0378